=== PATIENT | male | born 1955 | race Caucasian/White ===

== ENCOUNTER 2019-04-29 19:15 | Emergency (ER) | payer MEDICARE ==
[2019-04-29] MEDS ORDERED: SODIUM CHLORIDE 0.9% 1,000 ML IV ONE (19:42)
[2019-04-29] MEDS ORDERED: METOCLOPRAMIDE 5 MG/ML 2 ML VIAL IVP STA (19:50)
--- NOTE | 2019-04-29 19:50 | ED ---
General Adult HPI - General Chief complaint: Altered Mental Status Stated complaint: weakness Source: patient, EMS, RN notes reviewed Mode of arrival: EMS - History of Present Illness Initial comments: Chief complaint and history of present illness this is a 64-year-old male brought emergency room by EMS. Patient reports he felt dizzy after taking 3 Viagra over 60 minutes. Denies any chest pain no shortness of breath. No nausea no vomiting. Denies headache or chest pain. No evidence of a neuro d eficits. Patient states he is 100% sure it is because he took 3 generic Viagra. He reports he has taken 2 in the past without symptoms. Patient was picked up by EMS received 500 mL of normal saline that she's overly feeling better. Patient states he has not been taking his blood pressure pills for at least a week or more. In fact the patient's states she's not been taking any of his scheduled medications for the last week or more. - Related Data Home Medications Medication Instructions Recorded Confirmed Apixaban [Eliquis] 5 mg PO BID 04/29/19 04/29/19 Losartan Potassium 100 mg PO DAILY 04/29/19 04/29/19 Metoprolol Tartrate [Lopressor] 25 mg PO BID 04/29/19 04/29/19 Sildenafil Citrate [Sildenafil] 60 mg PO Q72H PRN 04/29/19 04/29/19 Allergies Allergy/AdvReac Type Severity Reaction Status Date / Time No Known Allergies Allergy Verified 04/29/19 20:11 Review of Systems ROS Statement: Those systems with pertinent positive or pertinent negative responses have been documented in the HPI. Review of systems. Patient denies any headache just dizziness. No nausea. No chest pain or shortness of breath no back pain denying any GI or complaints. Past medical problems significant for A. fib. This was converted. He takes medications but has not taken it for several days or a week. He has been taking Viagra as noted above. The patient states he thinks he might be on a blood thinner does not of the name of it. Denies taking aspirin daily. Patient denies any other medical problems. Denies any surgical history. ROS Other: All systems not noted in ROS Statement are negative. Past Medical History Past Medical History: Atrial Fibrillation History of Any Multi-Drug Resistant Organisms: None Reported Past Surgical History: No Surgical Hx Reported Past Psychological History: No Psychological Hx Reported Smoking Status: Never smoker Past Alcohol Use History: None Reported Past Drug Use History: None Reported General Exam - General Exam Comments Initial Comments: General: The patient is awake and alert, complains of feeling dizzy and while in emergency room became nauseated and vomited. The patient's vital signs are temperature 97.8 pulse 64 respiratory rate 16 pulse ox 96% on 4 L. Blood pressure 108/70. Mean blood pressure 82. Eye: Pupils are equal, round and reactive to light, extra-ocular movements are intact; there is normal conjunctiva bilaterally. No signs of icterus. Ears, nose, mouth and throat: There are moist mucous membranes and no oral lesions. Neck: The neck is supple, there is no tenderness. Cardiovascular: There is a regular rate and rhythm. No murmur, rub or gallop is appreciated. Past history of A. fib. Currently sinus rhythm Respiratory: Lungs are clear to auscultation, respirations are non-labored, breath sounds are equal. No wheezes, stridor, rales, or rhonchi. Gastrointestinal: Soft, non-distended, non-tender abdomen without masses or organomegaly noted. There is no rebound or guarding present. No CVA tenderness. Bowel sounds are unremarkable. Became nauseated and vomited in the emergency room. Back: There is no tenderness to palpation in the midline. There is no obvious deformity. No rashes noted. Musculoskeletal: Normal ROM, no tenderness, There is no pedal edema. There is no calf tenderness or swelling. Sensation intact. Pulses equal bilaterally 2+. Neurological: CN II-XII intact, There are no obvious motor or sensory deficits. Coordination appears grossly intact. Speech is normal. No focal or lateralizing findings Skin: Skin is warm and dry and no rashes or lesions are noted. Psychiatric: Cooperative, appropriate mood & affect, normal judgment. Course Vital Signs 04/29/19 04/29/19 04/29/19 19:17 19:34 20:46 Temperature 97.8 F Pulse Rate 64 63 70 Pulse Rate [ Pulse Oximetery ] Respiratory 16 16 18 Rate Blood Pressure 108/70 113/76 133/92 Blood Pressure [Left Arm Sitting] Blood Pressure [Left Arm Standing] Blood Pressure [Left Arm Supine] O2 Sat by Pulse 96 95 98 Oximetry 04/29/19 04/29/19 21:47 21:48 Temperature Pulse Rate 74 Pulse Rate [ 77 Pulse Oximetery ] Respiratory 18 18 Rate Blood Pressure 144/89 Blood Pressure 150/104 [Left Arm Sitting] Blood Pressure 148/110 [Left Arm Standing] Blood Pressure 144/89 [Left Arm Supine] O2 Sat by Pulse 99 Oximetry Medical Decision Making - Medical Decision Making Medical decision making; this is a 64-year-old male was called emergency room because of disorientation weakness and dizziness. The patient reports this started after taking 3 Viagra over. Approximately 60 minutes. Patient was picked up by EMS they gave him 500 ML's normal saline which he states made him feel better. He continues to improve while in emergency room.. He denies dizziness associated with head movement. No evidence of any strokelike symptoms. On emergency room did vomit once. Labs show white count of 9 hemoglobin 13 hematocrit of 40, INR 1.0, potassium 3.6 with a BUN of 18 creatinine 1.44 the GFR 51. Glucose 112. CK 49 troponin less than 0.012. AST and ALT of both low. Drug triage negative urine and n egative. The patient had a chest x-ray done and reviewed by radiologist his impression is; no acute cardiopulmonary process as read by Dr. Flanagan. Patient continues to improve. Sitting up without complaint of dizziness. States he hasn't had anything to eat or drink today. Is requesting something to eat and drink. He states he would like crackers and apple juice. Patient will continue to be monitored. Patient is able to eat and keep his drink and crackers down. States he feels like he wants to go back to his hotel. The patient walked 50 feet back and forth from his bed, woke steady straight line without any difficulties denying any significant problems. The plant this time the patient be discharged. Advised follow-up with his family physician. Patient advised to start taking his blood pressure and other medications as directed. Advised not to use Viagra as he did this evening. - Lab Data Result diagrams: 04/29/19 19:35 04/29/19 19:35 Lab Results 04/29/19 04/29/19 04/29/19 Range/Units 19:35 19:35 19:35 WBC 9.3 (3.8-10.6) k/uL RBC 4.53 (4.30-5.90) m/uL Hgb 13.6 (13.0-17.5) gm/dL Hct 40.9 (39.0-53.0) % MCV 90.3 (80.0-100.0) fL MCH 29.9 (25.0-35.0) pg MCHC 33.1 (31.0-37.0) g/dL RDW 13.6 (11.5-15.5) % Plt Count 267 (150-450) k/uL Neutrophils % 76 % Lymphocytes % 16 % Monocytes % 6 % Eosinophils % 1 % Basophils % 0 % Neutrophils # 7.1 (1.3-7.7) k/uL Lymphocytes # 1.5 (1.0-4.8) k/uL Monocytes # 0.5 (0-1.0) k/uL Eosinophils # 0.1 (0-0.7) k/uL Basophils # 0.0 (0-0.2) k/uL PT 10.8 (9.0-12.0) sec INR 1.0 (<1.2) APTT 22.5 (22.0-30.0) sec Sodium 139 (137-145) mmol/L Potassium 3.6 (3.5-5.1) mmol/L Chloride 110 H (98-107) mmol/L Carbon Dioxide 20 L (22-30) mmol/L Anion Gap 9 mmol/L BUN 18 (9-20) mg/dL Creatinine 1.44 H (0.66-1.25) mg/dL Est GFR (CKD-EPI)AfAm 58 (>60 ml/min/1.73 sqM) Est GFR (CKD-EPI)NonAf 51 (>60 ml/min/1.73 sqM) Glucose 112 H (74-99) mg/dL POC Glucose (mg/dL) (75-99) mg/dL POC Glu Jitney Driver ID Calcium 8.1 L (8.4-10.2) mg/dL Total Bilirubin 0.7 (0.2-1.3) mg/dL AST 16 L (17-59) U/L ALT 15 L (21-72) U/L Alkaline Phosphatase 64 (38-126) U/L Creatine Kinase 49 L (55-170) U/L Troponin I (0.000-0.034) ng/mL Total Protein 5.8 L (6.3-8.2) g/dL Albumin 3.3 L (3.5-5.0) g/dL Urine Color Urine Appearance (Clear) Urine pH (5.0-8.0) Ur Specific Park[place] (1.001-1.035) Urine Protein (Negative) Urine Glucose (UA) (Negative) Urine Ketones (Negative) Urine Blood (Negative) Urine Nitrite (Negative) Urine Bilirubin (Negative) Urine Urobilinogen (<2.0) mg/dL Ur Leukocyte Esterase (Negative) Urine Opiates Screen (NotDetected) Ur Oxycodone Screen (NotDetected) Urine Methadone Screen (NotDetected) Ur Propoxyphene Screen (NotDetected) Ur Barbiturates Screen (NotDetected) U Tricyclic Antidepress (NotDetected) Ur Phencyclidine Scrn (NotDetected) Ur Amphetamines Screen (NotDetected) U Methamphetamines Scrn (NotDetected) U Benzodiazepines Scrn (NotDetected) Urine Cocaine Screen (NotDetected) U Marijuana (THC) Screen (NotDetected) 04/29/19 04/29/19 04/29/19 Range/Units 19:35 20:09 21:46 WBC (3.8-10.6) k/uL RBC (4.30-5.90) m/uL Hgb (13.0-17.5) gm/dL Hct (39.0-53.0) % MCV (80.0-100.0) fL MCH (25.0-35.0) pg MCHC (31.0-37.0) g/dL RDW (11.5-15.5) % Plt Count (150-450) k/uL Neutrophils % % Lymphocytes % % Monocytes % % Eosinophils % % Basophils % % Neutrophils # (1.3-7.7) k/uL Lymphocytes # (1.0-4.8) k/uL Monocytes # (0-1.0) k/uL Eosinophils # (0-0.7) k/uL Basophils # (0-0.2) k/uL PT (9.0-12.0) sec INR (<1.2) APTT (22.0-30.0) sec Sodium (137-145) mmol/L Potassium (3.5-5.1) mmol/L Chloride (98-107) mmol/L Carbon Dioxide (22-30) mmol/L Anion Gap mmol/L BUN (9-20) mg/dL Creatinine (0.66-1.25) mg/dL Est GFR (CKD-EPI)AfAm (>60 ml/min/1.73 sqM) Est GFR (CKD-EPI)NonAf (>60 ml/min/1.73 sqM) Glucose (74-99) mg/dL POC Glucose (mg/dL) 95 (75-99) mg/dL POC Glu Jitney Driver ID Xiao Raza Calcium (8.4-10.2) mg/dL Total Bilirubin (0.2-1.3) mg/dL AST (17-59) U/L ALT (21-72) U/L Alkaline Phosphatase (38-126) U/L Creatine Kinase (55-170) U/L Troponin I <0.012 (0.000-0.034) ng/mL Total Protein (6.3-8.2) g/dL Albumin (3.5-5.0) g/dL Urine Color Yellow Urine Appearance Clear (Clear) Urine pH 6.0 (5.0-8.0) Ur Specific [place] 1.015 (1.001-1.035) Urine Protein Negative (Negative) Urine Glucose (UA) Negative (Negative) Urine Ketones Negative (Negative) Urine Blood Negative (Negative) Urine Nitrite Negative (Negative) Urine Bilirubin Negative (Negative) Urine Urobilinogen <2.0 (<2.0) mg/dL Ur Leukocyte Esterase Negative (Negative) Urine Opiates Screen Not Detected (NotDetected) Ur Oxycodone Screen Not Detected (NotDetected) Urine Methadone Screen Not Detected (NotDetected) Ur Propoxyphene Screen Not Detected (NotDetected) Ur Barbiturates Screen Not Detected (NotDetected) U Tricyclic Antidepress Not Detected (NotDetected) Ur Phencyclidine Scrn Not Detected (NotDetected) Ur Amphetamines Screen Not Detected (NotDetected) U Methamphetamines Scrn Not Detected (NotDetected) U Benzodiazepines Scrn Not Detected (NotDetected) Urine Cocaine Screen Not Detected (NotDetected) U Marijuana (THC) Screen Not Detected (NotDetected) Disposition Clinical Impression: Reaction, drug, adverse Disposition: HOME SELF-CARE Condition: Fair Instructions (If sedation given, give patient instructions): Adverse Drug Reaction (ED) Additional Instructions: Do not take 3 Viagra at once. Restart all the proper medications to control blood pressure etc. follow-up with family doctor. Urgency with have any problems whatsoever Is patient prescribed a controlled substance at d/c from ED?: No Referrals: None,Stated [Primary Care Provider] - 1-2 days Time of Disposition: 00:13
[2019-04-29 19:55] LABS: Basophils % (A) 0 %; Eosinophils # (A) 0.1 k/uL (0-0.7); Eosinophils % (A) 1 %; HCT 40.9 % (39.0-53.0); HGB 13.6 gm/dL (13.0-17.5); Lymphocytes # (A) 1.5 k/uL (1.0-4.8); Lymphocytes % (A) 16 %; MCH 29.9 pg (25.0-35.0); MCHC 33.1 g/dL (31.0-37.0); MCV 90.3 fL (80.0-100.0); Mean Platelet Volume 7.5; Monocytes # (A) 0.5 k/uL (0-1.0); Monocytes % (A) 6 %; Neutrophils # (A) 7.1 k/uL (1.3-7.7); Neutrophils % (A) 76 %; Platelet Count 267 k/uL (150-450); RBC 4.53 m/uL (4.30-5.90); RDW 13.6 % (11.5-15.5); WBC 9.3 k/uL (3.8-10.6)
[2019-04-29 20:03] LABS: Albumin 3.3 g/dL (3.5-5.0); Calcium 8.1 mg/dL (8.4-10.2); Potassium 3.6 mmol/L (3.5-5.1); Total Bilirubin 0.7 mg/dL (0.2-1.3); Total Protein 5.8 g/dL (6.3-8.2)
[2019-04-29 20:10] LABS: Partial Thromboplastin Time 22.5 sec (22.0-30.0); Prothrombin Time 10.8 sec (9.0-12.0)
[2019-04-29 20:11] LABS: Glucose,Whole Blood 95 mg/dL (75-99)
--- NOTE | 2019-04-29 20:26 | XR ---
EXAMINATION TYPE: XR chest 2V DATE OF EXAM: 04/29/2019 COMPARISON: NONE HISTORY: Confusion and drowsiness TECHNIQUE: Frontal and lateral views of the chest are obtained. FINDINGS: Heart and mediastinum are normal. Lungs are clear. Diaphragm is normal. Bony thorax is int act. There are chest leads. IMPRESSION: No active cardiopulmonary disease.
[2019-04-29 20:50] VITALS: RESP 18
[2019-04-29 21:55] LABS: Appearance,Urine Clear (Clear); Bilirubin,Urine Negative (Negative); Blood,Urine Negative (Negative); Color,Urine Yellow; Glucose,Urine (UA) Negative (Negative); Ketones,Urine Negative (Negative); Leukocyte Esterase,Urine Negative (Negative); Nitrite,Urine Negative (Negative); Protein,Urine Negative (Negative); Specific Gravity,Urine 1.015 (1.001-1.035); Urobilinogen,Urine <2.0 mg/dL (<2.0)
[2019-04-29 22:05] LABS: Amphetamine Screen,Urine Not Detected (NotDetected); Barbiturate Screen,Urine Not Detected (NotDetected); Benzodiazepines Screen,Urine Not Detected (NotDetected); Cocaine Screen,Urine Not Detected (NotDetected); Methadone Screen, Urine Not Detected (NotDetected); Opiate Screen,Urine Not Detected (NotDetected); Oxycodone Screen, Urine Not Detected (NotDetected); Phencyclidine Screen,Urine Not Detected (NotDetected); Tricyclic Antidepressant,Urine Not Detected (NotDetected); Urn Cannabinoid Scrn Not Detected (NotDetected)
[2019-04-30 00:26] VITALS: BP 126/77; PULSE 73; TEMP 98
== END 2019-04-30 00:43 | disposition home or self-care (01) ==
LOC: EC 19:15
DX: R42 Dizziness and giddiness (principal); R41.0 Disorientation, unspecified; R53.1 Weakness; T46.7X5A Adverse effect of peripheral vasodilators, initial encounter; I48.91 Unspecified atrial fibrillation; Z79.01 Long term (current) use of anticoagulants; Z79.899 Other long term (current) drug therapy
CPT/HCPCS: 36415; 93005; 80053; 82550; 84484; 85025; 85610; 85730; 81003; 80306; 71046; 99285; 96374; 96361 ×2; J2765